=== PATIENT | female | born 1995 | race Caucasian/White ===

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

== ENCOUNTER 2019-03-19 07:15 | Inpatient (IN) ==
[2019-03-19 07:46] LABS: URINE SOURCE VOIDED
[2019-03-19] MEDS ORDERED: ZOFRAN IV PRN (07:47)
[2019-03-19] MEDS ORDERED: PEPCID PO ONE (07:47)
[2019-03-19] MEDS ORDERED: AMPICILLIN 2 GM/NS 2 GM/100 ML IVPB IV ONE (07:47)
[2019-03-19] MEDS ORDERED: REGLAN PO ONE (07:47)
[2019-03-19] MEDS ORDERED: STADOL IV PRN (07:47)
[2019-03-19] MEDS ORDERED: PEPCID IV PRN (07:47)
[2019-03-19] MEDS ORDERED: TYLENOL PO PRN (07:47)
[2019-03-19] MEDS ORDERED: KEFZOL 1 GM/D5W 1 GM/50 ML IVPB IV PRN (07:47)
[2019-03-19] MEDS ORDERED: PEPCID PO PRN (07:47)
[2019-03-19 07:51] LABS: BILIRUBIN URINE NEGATIVE (NEGATIVE); BLOOD URINE NEGATIVE (NEGATIVE); CLARITY CLEAR (CLEAR); COLOR YELLOW; GLUCOSE URINE NEGATIVE (NEGATIVE); KETONE URINE NEGATIVE (NEGATIVE); LEUKOCYTES URINE TRACE (NEGATIVE); NITRITE URINE NEGATIVE (NEGATIVE); PROTEIN URINE NEGATIVE (NEGATIVE); SP GRAVITY URINE 1.005; UROBILINOGEN URINE NORMAL
[2019-03-19] MEDS ORDERED: SODIUM CHLORIDE 0.9% INJ SCH (08:00)
[2019-03-19] MEDS ORDERED: LR 1,000 ML IV SCH (08:00)
[2019-03-19] MEDS ORDERED: PITOCIN 30 UNITS/NS 30 UNIT/500 ML IV.SOLN IV SCH ×2 (08:00→09:30)
[2019-03-19] MEDS ORDERED: XYLOCAINE-MPF 1% INJ PRN (08:31)
[2019-03-19] MEDS ORDERED: MINERAL OIL PO PRN ×2 (08:31→09:26)
[2019-03-19] MEDS ORDERED: PITOCIN ONE (08:56)
[2019-03-19] MEDS ORDERED: ATARAX PO PRN (09:26)
[2019-03-19] MEDS ORDERED: BENADRYL IV PRN (09:26)
[2019-03-19] MEDS ORDERED: PITOCIN IM PRN (09:26)
[2019-03-19] MEDS ORDERED: BOOSTRIX VACCINE IM ONE (09:26)
[2019-03-19] MEDS ORDERED: PERI MEDS (DERMOPLAST/NUPERCAINAL/TUCKS) MISC PRN (09:26)
[2019-03-19] MEDS ORDERED: HYDROXYZINE IM PRN (09:26)
[2019-03-19] MEDS ORDERED: BENADRYL PO PRN (09:26)
[2019-03-19] MEDS ORDERED: M-M-R II VACCINE SUBQ ONE (09:26)
[2019-03-19] MEDS ORDERED: CYTOTEC PO PRN (09:26)
[2019-03-19] MEDS ORDERED: AMBIEN PO PRN (09:26)
[2019-03-19] MEDS ORDERED: PITOCIN 20 UNITS/NS 20 UNITS/1,000 ML IV.SOLN IV SCH (09:30)
[2019-03-19 09:31] LABS: BASO# 0.03 X1000 (0.0-0.2); BASO% 0.3 % (0.0-0.8); EOS# 0.07 X1000 (0.0-0.7); EOS% 0.7 % (0.0-10.0); HEMOGLOBIN 9.2 g/dL (12.0-16.0); IMM GRAN# 0.08 X1000 (0.0-0.04); IMM GRAN% 0.8 % (0.0-0.5); LYMPH# 2.05 X1000 (1.2-3.4); LYMPH% 21.3 % (20.5-51.1); MCH 20.8 PG (27-31); MCHC 28.8 g/dL (33-37); MCV 72.4 FL (81-99); MONO# 0.78 X1000 (0.11-0.59); MONO% 8.1 % (1.7-9.3); MPV 9.7 FL (7.4-10.4); NEUT# 6.63 X1000 (1.4-6.5); NEUT% 68.8 % (42.2-75.2); PLT 289 X1000 (130-400); RBC 4.42 XMIL (4.2-5.4); RDW 16.7 % (11.5-14.5); WBC 9.64 X1000 (4.8-10.8)
[2019-03-19 09:43] LABS: UR AMPHETAMINES QUAL NONE DETECTED (NONE DETECT); UR BARBITUATES QUAL NONE DETECTED (NONE DETECT); UR BENZODIAZEPIN QUAL NONE DETECTED (NONE DETECT); UR CANNABINOIDS QUAL NONE DETECTED (NONE DETECT); UR COCAINE QUAL NONE DETECTED (NONE DETECT); UR METHADONE QUAL NONE DETECTED (NONE DETECT); UR METHAMPHETAMINE QUAL NONE DETECTED (NONE DETECT); UR OPIATES QUAL NONE DETECTED (NONE DETECT); UR OXYCODONE QUAL NONE DETECTED (NONE DETECT); UR PCP QUAL NONE DETECTED (NONE DETECT); UR PROPOXYPHENE QUAL NONE DETECTED (NONE DETECT); UR TCA QUAL NONE DETECTED (NONE DETECT)
[2019-03-19] MEDS: MOTRIN PO PRN ×2 (10:18→21:10)
[2019-03-19 11:13] LABS: ANISOCYTOSIS 2+; LYMPHS 20 % (21-51); MICROCYTOSIS 1+; MONO 6 % (1-9); SEGS 74 % (42-75)
[2019-03-19] MEDS ORDERED: AMPICILLIN 1 GM/NS 1 GM/50 ML IVPB IV SCH (11:50)
[2019-03-19] MEDS: PERICOLACE PO SCH (21:10)
[2019-03-20 08:47] LABS: BASO# 0.06 X1000 (0.0-0.2); BASO% 0.6 % (0.0-0.8); EOS# 0.13 X1000 (0.0-0.7); EOS% 1.3 % (0.0-10.0); HEMOGLOBIN 8.2 g/dL (12.0-16.0); IMM GRAN# 0.06 X1000 (0.0-0.04); IMM GRAN% 0.6 % (0.0-0.5); LYMPH# 2.32 X1000 (1.2-3.4); LYMPH% 22.4 % (20.5-51.1); MCH 20.7 PG (27-31); MCHC 28.3 g/dL (33-37); MONO% 10.6 % (1.7-9.3); MPV 10.1 FL (7.4-10.4); NEUT# 6.69 X1000 (1.4-6.5); NEUT% 64.5 % (42.2-75.2); PLT 266 X1000 (130-400); RBC 3.97 XMIL (4.2-5.4); RDW 16.5 % (11.5-14.5); WBC 10.36 X1000 (4.8-10.8)
[2019-03-20] MEDS: MOTRIN PO PRN (14:29)
[2019-03-20] MEDS: PERICOLACE PO SCH (20:33)
[2019-03-21] MEDS: MOTRIN PO PRN (02:27)
[2019-03-21 07:49] VITALS: BP 126/70
== END 2019-03-21 10:11 | disposition home or self-care (01) ==
LOC: P.ED 07:15 → EDSTATUS 07:34 → P.LD 07:35 → LD 03-20 10:33 → P.LD 03-20 10:50
PROVIDERS: ADMIT Obstetrics & Gynecology; ATTEND Obstetrics & Gynecology